=== PATIENT | male | born 1940 | race Caucasian/White ===

== ENCOUNTER 2019-01-08 10:10 | Outpatient (CLI) | payer OTHER ==
[~2019-01-08 10:10] MED LIST: CAPOTEN25 MG; CLONAZEPAM1 MG; PROSCAR5 MG; VITAMIN B COMPL
== END 2019-01-08 10:17 | disposition home or self-care (01) ==
LOC: TOM 10:10
DX: R19.5 Other fecal abnormalities (principal); K56.50 Intestinal adhesions [bands], unspecified as to partial versus complete obstruction